=== PATIENT | male | born 1985 | race Caucasian/White ===

== ENCOUNTER 2020-02-21 10:13 | Emergency (ER) | payer OTHER ==
[2020-02-21] MEDS ORDERED: ACETAMINOPHEN 325 MG TABLET PO ONE (10:55)
[2020-02-21] MEDS ORDERED: IBUPROFEN 600 MG TABLET PO ONE (10:55)
--- NOTE | 2020-02-21 10:58 | ER Document Report ---
HPI - HPI Time Seen by Provider: 02/21/20 10:51 Context: Patient is a 34-year-old male who presents to the emergency department with a chief complaint of left sided rib pain. Patient states that his pain started about 4 days ago. He states that he was working on his car and was underneath the car working. States that his chest was on the floor a lot. Denies any actual trauma that he knows of, but states that he might of bumped his rib. Patient is currently taking Vyvanse. Patient states that he felt a pop yesterday. States that he took ibuprofen yesterday, but has not helped with the pain. - CONSTITUTIONAL Constitutional: DENIES: Fever, Chills - EENT EENT: DENIES: Sore Throat, Nasal Drainage-Clear, Congestion, Eye problems - NEURO Neurology: DENIES: Headache, Weakness - CARDIOVASCULAR Cardiovascular: DENIES: Chest pain - Rib pain - RESPIRATORY Respiratory: REPORTS: Trouble Breathing. DENIES: Coughing - MUSCULOSKELETAL Musculoskeletal: DENIES: Extremity pain - DERM Skin Color: Normal Skin Problems: None Past Medical History - General Information source: Patient - Social History Smoking Status: Unknown if Ever Smoked Family History: Reviewed & Not Pertinent Vertical Provider Document - CONSTITUTIONAL Agree With Documented VS: Yes Exam Limitations: No Limitations General Appearance: No Apparent Distress - HEENT HEENT: Atraumatic, Normocephalic, PERRLA - NECK Neck: Normal Inspection - RESPIRATORY Respiratory: Breath Sounds Normal, No Respiratory Distress - CARDIOVASCULAR Cardiovascular: Regular Rhythm, Tachycardia Pulses: Normal: Radial Course - Re-evaluation Re-evalutation: 02/21/20 12:04 Chest x-ray did not reveal any rib fractures. No pneumothorax noted. Patient m ost likely has costochondritis. Lung sounds are clear. No shortness of breath. We will give him some Robaxin. Follow-up precautions were given. Verbal discharge instructions were given to the patient. They verbalized understanding. They are stable for discharge. - Vital Signs Vital signs: Temp Pulse Resp BP Pulse Ox 98.2 F 116 H 18 135/93 H 100 02/21/20 10:16 02/21/20 10:16 02/21/20 10:16 02/21/20 10:16 02/21/20 10:16 Discharge - Discharge Clinical Impression: Rib pain on left side, Costochondritis, acute Condition: Stable Disposition: HOME, SELF-CARE Additional Instructions: You were seen today in the emergency department for rib pain. Your x-ray was normal. Please continue ibuprofen 600 mg every 6 hours and acetaminophen 1000 mg every 6 hours. You can also take Robaxin as needed. Follow-up with your primary care provider in regards to this visit. Use the incentive spirometer 10 times an hour while awake for the next few days to prevent pneumonia. Prescriptions: Methocarbamol [Robaxin 500 mg Tablet] 1,000 mg PO BID PRN #12 tablet PRN Reason: Forms: Return to Work Referrals: ISATU PHAM MD [Primary Care Provider] - Follow up in 3-5 days
--- NOTE | 2020-02-21 11:56 | RADIOLOGY REPORT (SQ) ---
EXAM DESCRIPTION: RIBS LEFT W/PA CHEST IMAGES COMPLETED DATE/TIME: 02/21/2020 11:29 am REASON FOR STUDY: Left rib pain COMPARISON: None. TECHNIQUE: Frontal view of the chest and additional views of the left ribs acquired. NUMBER OF VIEWS: Five view. LIMITATIONS: None. FINDINGS: FRONTAL CXR: No pneumothorax. No pleural effusion. No atelectasis or infiltrates. RIBS: No displaced rib fractures. No lytic or blastic bony lesions. OTHER: No other significant finding. IMPRESSION: NO PNEUMOTHORAX. NO DISPLACED RIB FRACTURES. COMMENT: SITE OF TRAUMA/COMPLAINT MARKED/STAMP COMPLETED: NO. TECHNICAL DOCUMENTATION: JOB ID: [id number] 2010 [employer]- All Rights Reserved Reading location - IP/workstation name: [email or web address]
[2020-02-21 12:12] VITALS: BP 148/88
== END 2020-02-21 12:19 | disposition home or self-care (01) ==
LOC: ER 10:13
DX: R07.81 Pleurodynia (principal); M94.0 Chondrocostal junction syndrome [Tietze]
CPT/HCPCS: 99283